=== PATIENT | male | born 1950 | race Caucasian/White ===

== ENCOUNTER 2020-08-14 10:47 | Emergency (ER) | payer MEDICARE, OTHER ==
[2020-08-14] MEDS ORDERED: Furosemide 40 MG/4 ML VIAL IVPUSH ONE ×2 (10:52→11:13)
[2020-08-14] MEDS ORDERED: Diltiazem 25 MG/5 ML SDV IVPUSH ONE ×2 (11:00→12:07)
[2020-08-14] MEDS ORDERED: Sodium Chloride 0.9% 1,000 ML IV SCH (11:00)
--- NOTE | 2020-08-14 11:00 | EDM.PDOC ---
ED HPI GENERAL MEDICAL PROBLEM - General Chief Complaint: Cardiovascular Problem Stated Complaint: SOB Time Seen by Provider: 08/14/20 11:00 Source of Information: Reports: Patient History Limitations: Reports: No Limitations - History of Present Illness INITIAL COMMENTS - FREE TEXT/NARRATIVE: pt was sent in from clinic had 2nd Moderna vaccine one week ago Since has had sob and leg swelling and on and off episodes of palpitations pt states he developed fever and chills after the injection and has been feeling unwell since then has had worsening cough ( he is a smoker) Fever and chills did resolve after the initial onset Onset: Gradual Onset Date: 08/08/20 Duration: Day(s):, Getting Worse Location: Reports: Chest Quality: Reports: Pressure Severity: Moderate Improves with: Reports: Rest Worsens with: Reports: Breathing, Movement Associated Symptoms: Reports: Cough, Malaise, Shortness of Breath, Weakness Treatments [employer]: Reports: Aspirin, EKG (taken in clinic: Afib) - Related Data Allergies Allergy/AdvReac Type Severity Reaction Status Date / Time No Known Allergies Allergy Verified 08/14/20 10:54 Home Meds: Home Meds Aspirin 81 mg PO DAILY 08/14/20 [History] Fluticasone Propionate [Flonase] 2 gm NS DAILY 08/14/20 [History] Loratadine [Claritin] 10 mg PO DAILY 08/14/20 [History] Losartan [Cozaar] 100 mg PO DAILY 08/14/20 [History] Tamsulosin [Tamsulosin 24 Hr] 0.4 mg PO DAILY 08/14/20 [History] amLODIPine Besylate [Amlodipine Besylate] 10 mg PO DAILY 08/14/20 [History] atorvaSTATin [Lipitor] 20 mg PO DAILY 08/14/20 [History] ED ROS GENERAL - Review of Systems Review Of Systems: See Below Constitutional: Reports: Malaise, Weakness, Fatigue, Decreased Appetite HEENT: Reports: No Symptoms Respiratory: Reports: Shortness of Breath, Wheezing, Cough, Sputum Cardiovascular: Reports: Blood Pressure Problem, Dyspnea on Exertion, Edema, Lightheadedness, Orthopnea, Palpitations Endocrine: Reports: No Symptoms GI/Abdominal: Reports: No Symptoms : Reports: No Symptoms Musculoskeletal: Reports: No Symptoms Skin: Reports: No Symptoms Neurological: Reports: Dizziness. Denies: Headache, Tingling, Difficulty Walking, Change in Speech, Gait Disturbance Psychiatric: Reports: No Symptoms Hematologic/Lymphatic: Denies: Anemia, Easy Bleeding, Easy Bruising, Swollen Glands Immunologic: Reports: No Symptoms ED EXAM, GENERAL - Physical Exam Exam: See Below Exam Limited By: No Limitations General Appearance: Alert, WD/WN, Mild Distress (due to shortness of breath) Ears: Normal External Exam Nose: Normal Inspection Throat/Mouth: Normal Oropharynx Head: Atraumatic, Normocephalic Neck: Supple, Non-Tender Respiratory/Chest: Decreased Breath Sounds, Crackles, Rales, Wheezing Cardiovascular: Tachycardia, Irregularly Irregular Peripheral Pulses: 2+: Dorsalis Pedis (L), Dorsalis Pedis (R) GI/Abdominal: Soft, Non-Tender Back Exam: Normal Inspection, Full Range of Motion Extremities: Normal Inspection, Normal Range of Motion Neurological: Alert, Oriented, CN II-XII Intact, Normal Cognition Psychiatric: Normal Affect, Normal Mood Skin Exam: Warm, Dry, Intact Lymphatic: No Adenopathy #1 Interpretation EKG Date: 08/14/20 Time: 12:22 Rhythm: A-Fib Rate (Beats/Min): 125 [place]: LAD-Left [place] Deviation P-Wave: Variable QRS: Normal ST-T: Depressed QT: Normal Comparison: NA - No Prior EKG EKG Interpretation Comments: Afib with RVR Course - Vital Signs Last Recorded V/S: Last Vital Signs Temp 36.6 C 08/14/20 10:50 Pulse 138 H 08/14/20 10:50 Resp 21 H 08/14/20 10:50 BP 148/102 H 08/14/20 10:50 Pulse Ox 99 08/14/20 10:50 - Orders/Labs/Meds Orders: Active Orders 24 hr Category Date Time Status Chest 1V Frontal [CR] Stat Exams 08/14/20 10:51 Taken Chest wo Cont [CT] Stat Exams 08/14/20 12:14 Taken Isolation [COMM] Routine Oth 08/14/20 11:23 Ordered EKG 12 Lead [EK] Routine Ther 08/14/20 10:52 Ordered Labs: Laboratory Tests 08/14/20 08/14/20 08/14/20 Range/Units 10:55 10:55 10:55 WBC 13.7 H (3.2-10.1) x10-3/uL RBC 5.14 (3.90-5.90) x10(6)uL Hgb 14.7 (12.9-17.7) g/dL Hct 44.8 (38.3-50.1) % MCV 87.3 (80.8-98.7) fL MCH 28.5 (27.0-33.3) pg MCHC 32.7 (28.7-35.3) g/dL RDW 15.2 H (12.4-15.0) % Plt Count 16 L* (117-477) x10(3)uL MPV 8.9 (6.7-11.0) fL Add Manual Diff Yes Neutrophils % (Manual) 84 H (46-82) % Lymphocytes % (Manual) 12 L (13-37) % Monocytes % (Manual) 3 L (4-12) % Eosinophils % (Manual) 1 (0-5) % Clumped Platelets Many Giant Platelets Occasional PT (9.0-11.1) sec INR (1.00-1.24) D-Dimer, Quantitative (0.0-0.59) mg/LFEU Sodium (135-145) mmol/L Potassium (3.5-5.3) mmol/L Chloride (100-110) mmol/L Carbon Dioxide (21-32) mmol/L BUN (7-18) mg/dL Creatinine (0.70-1.30) mg/dL Est Cr Clr Drug Dosing Estimated GFR (MDRD) (>60) BUN/Creatinine Ratio (9-20) Glucose (80-116) mg/dL Lactic Acid 0.9 (0.4-2.0) mmol/L Calcium (8.6-10.2) mg/dL Total Bilirubin (0.1-1.3) mg/dL AST (5-25) IU/L ALT (12-36) U/L Alkaline Phosphatase (56-112) IU/L Troponin I 15.2 (4.0-60.3) pg/mL C-Reactive Protein 4.7 H* (0.5-0.9) mg/dL NT-Pro-B Natriuret Pep 5583 H* (<=125) pg/mL Total Protein (6.0-8.0) g/dL Albumin (3.2-4.6) g/dL Globulin g/dL Albumin/Globulin Ratio SARS-CoV-2 RNA ([facility]) (NEGATIVE) 08/14/20 08/14/20 08/14/20 Range/Units 10:55 10:55 10:55 WBC (3.2-10.1) x10-3/uL RBC (3.90-5.90) x10(6)uL Hgb (12.9-17.7) g/dL Hct (38.3-50.1) % MCV (80.8-98.7) fL MCH (27.0-33.3) pg MCHC (28.7-35.3) g/dL RDW (12.4-15.0) % Plt Count (117-477) x10(3)uL MPV (6.7-11.0) fL Add Manual Diff Neutrophils % (Manual) (46-82) % Lymphocytes % (Manual) (13-37) % Monocytes % (Manual) (4-12) % Eosinophils % (Manual) (0-5) % Clumped Platelets Giant Platelets PT 11.4 H (9.0-11.1) sec INR 1.06 (1.00-1.24) D-Dimer, Quantitative 0.55 (0.0-0.59) mg/LFEU Sodium 141 (135-145) mmol/L Potassium 4.5 (3.5-5.3) mmol/L Chloride 104 (100-110) mmol/L Carbon Dioxide 23 (21-32) mmol/L BUN 22 H (7-18) mg/dL Creatinine 1.3 (0.70-1.30) mg/dL Est Cr Clr Drug Dosing TNP Estimated GFR (MDRD) 55 L (>60) BUN/Creatinine Ratio 16.9 (9-20) Glucose 104 (80-116) mg/dL Lactic Acid (0.4-2.0) mmol/L Calcium 8.6 (8.6-10.2) mg/dL Total Bilirubin 1.3 (0.1-1.3) mg/dL AST 17 (5-25) IU/L ALT 36 (12-36) U/L Alkaline Phosphatase 82 (56-112) IU/L Troponin I (4.0-60.3) pg/mL C-Reactive Protein (0.5-0.9) mg/dL NT-Pro-B Natriuret Pep (<=125) pg/mL Total Protein 7.3 (6.0-8.0) g/dL Albumin 4.0 (3.2-4.6) g/dL Globulin 3.3 g/dL Albumin/Globulin Ratio 1.2 SARS-CoV-2 RNA ([facility]) (NEGATIVE) 08/14/20 Range/Units 11:23 WBC (3.2-10.1) x10-3/uL RBC (3.90-5.90) x10(6)uL Hgb (12.9-17.7) g/dL Hct (38.3-50.1) % MCV (80.8-98.7) fL MCH (27.0-33.3) pg MCHC (28.7-35.3) g/dL RDW (12.4-15.0) % Plt Count (117-477) x10(3)uL MPV (6.7-11.0) fL Add Manual Diff Neutrophils % (Manual) (46-82) % Lymphocytes % (Manual) (13-37) % Monocytes % (Manual) (4-12) % Eosinophils % (Manual) (0-5) % Clumped Platelets Giant Platelets PT (9.0-11.1) sec INR (1.00-1.24) D-Dimer, Quantitative (0.0-0.59) mg/LFEU Sodium (135-145) mmol/L Potassium (3.5-5.3) mmol/L Chloride (100-110) mmol/L Carbon Dioxide (21-32) mmol/L BUN (7-18) mg/dL Creatinine (0.70-1.30) mg/dL Est Cr Clr Drug Dosing Estimated GFR (MDRD) (>60) BUN/Creatinine Ratio (9-20) Glucose (80-116) mg/dL Lactic Acid (0.4-2.0) mmol/L Calcium (8.6-10.2) mg/dL Total Bilirubin (0.1-1.3) mg/dL AST (5-25) IU/L ALT (12-36) U/L Alkaline Phosphatase (56-112) IU/L Troponin I (4.0-60.3) pg/mL C-Reactive Protein (0.5-0.9) mg/dL NT-Pro-B Natriuret Pep (<=125) pg/mL Total Protein (6.0-8.0) g/dL Albumin (3.2-4.6) g/dL Globulin g/dL Albumin/Globulin Ratio SARS-CoV-2 RNA ([facility]) Negative (NEGATIVE) Meds: Medications Discontinued Medications Generic Name Dose Route Start Last Admin Trade Name Freq PRN Reason Stop Dose Admin Albuterol 2 gm 08/14/20 11:27 08/14/20 11:40 Albuterol 8 Gm Inhaler INH 08/14/20 11:28 2 puff ONETIME ONE Administration Albuterol/Ipratropium 3 ml 08/14/20 11:18 08/14/20 11:22 Albuterol/Ipratropium 3.0-0.5 Mg/3 Ml Neb Soln NEB 08/14/20 11:19 3 ml ONETIME ONE Administration Diltiazem HCl 20 mg 08/14/20 11:00 08/14/20 11:15 Diltiazem 25 Mg/5 Ml Sdv IVPUSH 08/14/20 11:01 20 mg ONETIME ONE Administration Diltiazem HCl 30 mg 08/14/20 12:03 08/14/20 13:00 Diltiazem Ir 30 Mg Tab PO 08/14/20 12:04 Not Given ONETIME ONE Diltiazem HCl 25 mg 08/14/20 12:07 08/14/20 12:25 Diltiazem 25 Mg/5 Ml Sdv IVPUSH 08/14/20 12:08 25 mg ONETIME ONE Administration Furosemide 40 mg 08/14/20 10:52 08/14/20 11:17 Furosemide 40 Mg/4 Ml Vial IVPUSH 08/14/20 10:53 40 mg NOW ONE Administration Furosemide 40 mg 08/14/20 11:13 08/14/20 11:37 Furosemide 40 Mg/4 Ml Vial IVPUSH 08/14/20 11:14 40 mg NOW ONE Administration Sodium Chloride 1,000 mls @ 125 mls/hr 08/14/20 11:00 08/14/20 13:50 Normal Saline IV 100 mls/hr ASDIRECTED DAIN Infusion Sodium Chloride 1,000 mls @ 250 mls/hr 08/14/20 11:13 08/14/20 13:00 Normal Saline IV 08/14/20 15:12 Not Given .BOLUS ONE Ceftriaxone Sodium 1 gm/ 50 mls @ 200 mls/hr 08/14/20 13:28 08/14/20 13:32 Sodium Chloride IV 08/14/20 13:42 200 mls/hr ONETIME ONE Administration - Re-Assessments/Exams Free Text/Narrative Re-Assessment/Exam: 08/14/20 14:41 ON ARRIVAL FROM CLINIC Had Afib on monitor ( new onset in the last one week ??) IVF , labs Cxray playground monitor started Given iv cardizem 20 and HR reduced from 140-130 to 110- 127 Diuresed with lasix 60mg about 2 liter( pt given 100/hr Nacl now) HR remained in the 120-130's pt was given another dose of Cardizem 30mg Cxry showed pulmonary edema , CT chest shows infiltrates WBC 13.7 with left shift , elevated neutrophils and very low platelets ( 8 , then on recheck 16 noted ) pt given dose of rocpehin pt had to be given albuterol INH 2 puffs initially and then Duoneb as cough was getting worse call made to On-call physician, not able to accept pt So call made to [facility] , where he has been accepted for transfer Departure - Departure Time of Disposition: 15:00 Disposition: DC/Tfer to Acute Hospital 02 Reason for Transfer *Q: Other (COVID vaccine adverse effects) Condition: Fair Clinical Impression: CHF (congestive heart failure), Paroxysmal A-fib, COPD (chronic obstructive pulmonary disease), SOB (shortness of breath), Thrombocytopenia, Palpitations Referrals: Larissa Orosco [employer] [Primary Care Provider] - Forms: ED Department Discharge - Problem List & Annotations (1) SOB (shortness of breath) SNOMED Code(s): 805668202 Code(s): R06.02 - SHORTNESS OF BREATH Status: Acute - My Orders Last 24 Hours: My Active Orders 08/14/20 10:51 Chest 1V Frontal [CR] Stat 08/14/20 10:52 EKG 12 Lead [EK] Routine 08/14/20 11:23 Isolation [COMM] Routine 08/14/20 12:14 Chest wo Cont [CT] Stat - Assessment/Plan Last 24 Hours: My Active Orders 08/14/20 10:51 Chest 1V Frontal [CR] Stat 08/14/20 10:52 EKG 12 Lead [EK] Routine 08/14/20 11:23 Isolation [COMM] Routine 08/14/20 12:14 Chest wo Cont [CT] Stat
[2020-08-14] MEDS ORDERED: Sodium Chloride 0.9% 1,000 ML IV ONE (11:13)
[2020-08-14] MEDS ORDERED: Albuterol/Ipratropium 3.0-0.5 MG/3 ML Neb Soln NEB ONE (11:18)
[2020-08-14] MEDS ORDERED: Albuterol 8 GM Inhaler INH ONE (11:27)
[2020-08-14] MEDS ORDERED: Diltiazem IR 30 MG Tab PO ONE (12:03)
[2020-08-14] MEDS ORDERED: cefTRIAXone 1 GM in Sodium Chloride 0.9% 50 ML IV ONE (13:28)
== END 2020-08-14 15:15 ==
LOC: FB.ED 10:47
DX: I50.9 Heart failure, unspecified (principal); I48.0 Paroxysmal atrial fibrillation; J44.9 Chronic obstructive pulmonary disease, unspecified; D69.6 Thrombocytopenia, unspecified; Z20.822 Contact with and (suspected) exposure to COVID-19; Z79.82 Long term (current) use of aspirin; Z79.899 Other long term (current) drug therapy
CPT/HCPCS: 36415; 71045; 71250; 80053; 83605; 83880; 84484; 85025; 85379; 85610; 86140; 87804; 87804-59; 93005; 93010; 94640; 96365; 96375; 96376; 99285; 99285-25; A9270-GY; J0696; J1940; J3490; J7030; J7620-GY; U0002